=== PATIENT | female | born 1980 | race African-American/Black ===

== ENCOUNTER 2018-08-19 18:04 | Observation (INO) | payer MEDICAID, OTHER ==
[2018-08-19 18:44] LABS: #Basophils 0.1 thou/uL (0.0-0.2); #Eosinphils 0.1 thou/uL (0.0-0.7); #Monocytes 0.7 thou/uL (0.11-0.59); #Neutrophils 5.6 thou/uL (1.40-6.50); %Basophils 0.6 % (0.0-1.0); %Eosinophils 1.1 % (0.0-10.0); %Lymphocytes 32.1 % (21.0-51.0); %Monocytes 7.4 % (0.0-10.0); %Neutrophils 58.8 % (42.0-75.0); Hemoglobin 13.4 g/dL (12.0-16.0); Mean Corpuscular HGB CONC 32.9 g/dL (32.0-36.0); Mean Corpuscular Hemoglobin 32.1 pg (27.0-31.0); Mean Corpuscular Volume 97.5 fL (78.0-98.0); Mean Platelet Volume 7.4 fL (7.4-10.4); Platelet Count 332 thou/uL (130-400); RBC Distribution Width 11.7 % (11.5-14.5); Red Blood Cell (RBC) Count 4.16 mill/uL (4.20-5.40); White Blood Cell (WBC) Count 9.5 thou/uL (4.8-10.8)
[2018-08-19 19:06] LABS: ALT (SGPT) 18 U/L (8-55); AST (SGOT) 16 U/L (5-34); Albumin 3.4 g/dL (3.5-5.0); Alkaline Phosphatase 63 U/L (40-150); Anion Gap 12 mmol/L (10-20); BUN (Urea Nitrogen) 8 mg/dL (7.0-18.7); Bilirubin, Total 0.6 mg/dL (0.2-1.2); CK (CPK) 273 U/L (29-168); Calc. Creatinine Clearance 0 mL/min (70-130); Calcium 9.1 mg/dL (7.8-10.44); Carbon Dioxide 28 mmol/L (22-29); Chloride 103 mmol/L (98-107); Estimated GFR-MDRD 55; Globulin 3.9 g/dL (2.4-3.5); Glucose 267 mg/dL (70-105); Potassium 3.5 mmol/L (3.5-5.1); Protein, Total 7.3 g/dL (6.0-8.3); Sodium 139 mmol/L (136-145)
[2018-08-19 19:10] LABS: CKMB 1.3 ng/mL (0-6.6); Troponin I Less than 0.010 ng/mL (< 0.028)
[2018-08-19] MEDS ORDERED: Nitroglycerin 0.4 MG TAB (25 Tab Bottle) ONE (19:15)
[2018-08-19] MEDS ORDERED: Aspirin 81 mg Enteric Coated Tablet ONE (19:17)
[2018-08-19] MEDS ORDERED: Morphine 4 MG/ML VIAL ONE (19:25)
[2018-08-19] MEDS ORDERED: Nitroglycerin 2% Ointment 1 INCH/1 GM Packet ONE (19:25)
[2018-08-19] MEDS ORDERED: Ondansetron PF 4 MG/2 ML Vial ONE (19:29)
--- NOTE | 2018-08-19 19:48 | RAD ---
CHEST ONE VIEW: 08/19/18 INDICATION: Chest pain, shortness of breath. COMPARISON: None. IMPRESSION: The exam technique accentuates the cardiac silhouette and pulmonary vasculature. The lungs are clear. No pleural effusion or pneumothorax evident. No acute osseous abnormality is noted. POS: [facility]
--- NOTE | 2018-08-19 20:33 | PDOC.FPRHP ---
- History of Present Illness Chief Complaint: Chest pain History of Present Illness: This is a 38 yo female with a PMH of HTN, DM2, ANSELMO, asthma, morbid obesity who presents to the ED with a cc of chest pain. She states the pain started about 4 days ago. She states the pain is a sharp pain that worsens with movement. She reports it feels like someone is sitting on her chest when she exerts her self. The pain is a 4/10 at rest and a 9/10 with exertion. The pain radiates to her left arm. She also reports dizziness (vertigo) and weak legs. She had a Echo and a stress test done in the [facility] area in July but recently moved to the area and has not followed up. She reports that the dough molder hand called her with the stress results and states they had planned on performing coronary angiogram. - Allergies/Adverse Reactions Allergies Allergy/AdvReac Type Severity Reaction Status Date / Time sertraline Allergy Verified 08/19/18 21:22 - Home Medications Medication Instructions Recorded Confirmed Type Acetaminophen [Tylenol] 650 mg PO Q4H PRN 08/19/18 08/19/18 History Baclofen 10 mg PO BID PRN 08/19/18 08/19/18 History Cyanocobalamin (Vitamin B-12) 1,000 mcg PO DAILY 08/19/18 08/19/18 History [Vitamin B-12] Dicyclomine [Bentyl] 10 mg PO AC 08/19/18 08/19/18 History Ezetimibe [Zetia] 10 mg PO DAILY 08/19/18 08/19/18 History Gabapentin 1,000 mg PO DAILY 08/19/18 08/19/18 History Insulin Degludec [Tresiba 20 unit SQ DAILY 08/19/18 08/19/18 History Flextouch U-100] Insulin Glulisine [Apidra Solostar] 14 unit SC AC 08/19/18 08/19/18 History Magnesium 250 mg PO DAILY 08/19/18 08/19/18 History NIFEdipine [Nifedipine ER] 90 mg PO DAILY 08/19/18 08/19/18 History Omeprazole 40 mg PO DAILY 08/19/18 08/19/18 History - History PMHx: DM 2, HTN, ANSELMO, Asthma, morbid obesity PSHx: cholecystectomy, csection FHx:Mother had afib, grand mother of [place] at 72, brother has some heart disease Social: Smokes occasionally, drinks occasionally, denies drug use - Review of Systems General: denies: fever/chills, weight/appetite/sleep changes Eyes: denies: eye pain, vision changes ENT: denies: nasal congestion, rhinorrhea Respiratory: reports: cough, shortness of breath, exercise intolerance Cardiovascular: reports: chest pain, edema. denies: palpitation Gastrointestinal: denies: nausea, vomiting, diarrhea, constipation Genitourinary: denies: incontinence, dysuria Skin: denies: rashes, lesions Musculoskeletal: reports: tenderness (lower extremities) Neurological: reports: numbness (BLE) Psychological: denies: anxiety, depression - Vital signs BP: 155/104 HR: 101 RR: 14 Tmax: 98.1 Pox: 95% on RA Wt: 211 kg - Physical Exam Constitutional: NAD, awake, alert and oriented, other (Morbidly obese) HEENT: normocephalic and atraumatic, EOMI, MMM Neck: FROM, trachea midline Chest: other (Tender to palpation but not the same pain) Heart: RRR, normal S1/S2 Lungs: CTAB (restricted by body habitus), no respiratory distress Abdomen: soft, bowel sounds present, no masses/distention, other (mild tenderness to palpation diffusely) Musculoskeletal: ROM grossly normal Neurological: no focal deficit, CN II-XII intact Heme/Lymphatic: no unusual bruising or bleeding, no purpura Psychiatric: normal mood and affect, good judgment and insight, intact recent and remote memory FMR H&P: Results - Labs Result Diagrams: 08/20/18 00:36 08/20/18 00:36 Lab results: WBC 9.5 thou/uL (4.8-10.8) 08/19/18 18:33 Hgb 13.4 g/dL (12.0-16.0) 08/19/18 18:33 Hct 40.6 % (36.0-47.0) 08/19/18 18:33 MCV 97.5 fL (78.0-98.0) 08/19/18 18:33 Plt Count 332 thou/uL (130-400) 08/19/18 18:33 Neutrophils % 58.8 % (42.0-75.0) 08/19/18 18:33 Sodium 139 mmol/L (136-145) 08/19/18 18:33 Potassium 3.5 mmol/L (3.5-5.1) 08/19/18 18:33 Chloride 103 mmol/L (98-107) 08/19/18 18:33 Carbon Dioxide 28 mmol/L (22-29) 08/19/18 18:33 BUN 8 mg/dL (7.0-18.7) 08/19/18 18:33 Creatinine 1.11 mg/dL (0.6-1.1) H 08/19/18 18:33 Glucose 267 mg/dL (70-105) H 08/19/18 18:33 Calcium 9.1 mg/dL (7.8-10.44) 08/19/18 18:33 Total Bilirubin 0.6 mg/dL (0.2-1.2) 08/19/18 18:33 AST 16 U/L (5-34) 08/19/18 18:33 ALT 18 U/L (8-55) 08/19/18 18:33 Alkaline Phosphatase 63 U/L (40-150) 08/19/18 18:33 Creatine Kinase 273 U/L (29-168) H 08/19/18 18:33 CK-MB (CK-2) 1.3 ng/mL (0-6.6) 08/19/18 18:33 B-Natriuretic Peptide Less than 10.0 pg/mL (0-100) 08/19/18 18:33 Serum Total Protein 7.3 g/dL (6.0-8.3) 08/19/18 18:33 Albumin 3.4 g/dL (3.5-5.0) L 08/19/18 18:33 - EKG Interpretation EKG: Sinus tach, no st elevations or depressions - Radiology Interpretation Chest x-ray Status: image reviewed by me, report reviewed by me (No acute cardiopulmonary process) FMR H&P: A/P - Problem List (1) Chest pain Current Visit: Yes Status: Acute Code(s): R07.9 - CHEST PAIN, UNSPECIFIED (2) DM (diabetes mellitus) Current Visit: Yes Status: Acute Code(s): E11.9 - TYPE 2 DIABETES MELLITUS WITHOUT COMPLICATIONS (3) HTN (hypertension) Current Visit: Yes Status: Acute Code(s): I10 - ESSENTIAL (PRIMARY) HYPERTENSION (4) ANSELMO (obstructive sleep apnea) Current Visit: Yes Status: Acute Code(s): G47.33 - OBSTRUCTIVE SLEEP APNEA ( ADULT) (PEDIATRIC) (5) Asthma Current Visit: Yes Status: Acute Code(s): J45.909 - UNSPECIFIED ASTHMA, UNCOMPLICATED (6) Morbid obesity with BMI of 70 and over, adult Current Visit: Yes Status: Acute Code(s): E66.01 - MORBID (SEVERE) OBESITY DUE TO EXCESS CALORIES; Z68.45 - BODY MASS INDEX (BMI) 70 OR GREATER, ADULT - Plan This is a 38 yo female with a PMH of HTN, DM2, ANSELMO, asthma, morbid obesity Typical Chest pain likely 2/2 unstable angina -Admit to tele obs. Pt. is receiving nitro and morphine for symptom control. Troponins are negative x3. We will contact providers in [facility] area for release of records in the morning. Dr. Michael Jones, dough molder hand (Echo results), [facility] (stress test results). We will direct our management based on these findings. PCP Dr. Leila Kruse in [facility] area HTN -continue nifedipine DM 2 -Lantus, Aggressive SSI, ACHS accuchecks, A1C 11.0 ANSELMO -Aware Asthma -Duoneb PRN Morbid obesity -Aware Code: full Prophylaxis: SCDs Family: Friend at bedside Disposition: home in 1-2 days FMR H&P: Upper Level - Pertinent history 38 yo female here for chest pain. Hx of DMII, HTN, morbid obesity, asthma. Reports she has been having sharp pain at rest for the past few days which turns into pressure type pain when moving. 5/10 at rest, 9/10 with movement. She has recent history of having stress test and ECHO in the [facility] about 2 months ago. She apparently was suppose to have angiography done, but this is still pending. - Pertinent findings 155/116 HR: 93 Temp: 98.1 94% on RA Trop: <0.010 GEN: NAD, morbidly obese which limits exam CARD: RRR, no m/g/r PULM: CTA ABD: diffusely TTP EXT: no cyanosis or edema EKG: sinus tach at 112, Twave inversion - Plan Date/Time: 08/19/182028 I, Blas Vargas DO, have evaluated this patient and agree with findings/plan as outlined by internal control analyst resident. Pertinent changes/additions are listed here. atypical Chest pain, r/o ACS -due to her history of recent evaluation, we will hold off on getting stress test and will get records from [facility] cardiology tomorrow to determine workup. Then based on results of that search, consider cardiology consult to determine if we should do further workup here or in outpatient setting. Continue to trend CE. HTN: -continue home meds DMII -continue home meds
[2018-08-19 21:42] VITALS: BMI 89.0
[2018-08-19] MEDS ORDERED: Acetaminophen 325 MG TAB PO PRN (22:04)
[2018-08-19] MEDS ORDERED: Dextrose 50% Abboject 50 ML SYRINGE SLOW IVP PRN (22:09)
[2018-08-19] MEDS ORDERED: Dextrose 5% in Water 1,000 ML IV PRN (22:09)
[2018-08-19] MEDS ORDERED: HumaLOG 300 UNITS/3 ML VIAL SC PRN ×2 (22:09→23:26)
[2018-08-19 22:31] LABS: Troponin I Less than 0.010 ng/mL (< 0.028)
[2018-08-19] MEDS ORDERED: Insulin Glargine 20 UNITS in Pre-Filled Syringe 1 EACH SC SCH (23:30)
[2018-08-19] MEDS: Morphine 4 MG/ML VIAL SLOW IVP PRN (23:47)
[2018-08-20 00:55] LABS: #Eosinphils 0.2 thou/uL (0.0-0.7); #Lymphocytes 2.5 thou/uL (1.20-3.40); #Monocytes 0.8 thou/uL (0.11-0.59); #Neutrophils 5.1 thou/uL (1.40-6.50); %Basophils 0.2 % (0.0-1.0); %Eosinophils 1.9 % (0.0-10.0); %Lymphocytes 29.1 % (21.0-51.0); %Monocytes 8.9 % (0.0-10.0); %Neutrophils 59.9 % (42.0-75.0); Hemoglobin 12.2 g/dL (12.0-16.0); Mean Corpuscular HGB CONC 32.1 g/dL (32.0-36.0); Mean Corpuscular Hemoglobin 31.4 pg (27.0-31.0); Mean Platelet Volume 7.3 fL (7.4-10.4); Platelet Count 299 thou/uL (130-400); RBC Distribution Width 11.8 % (11.5-14.5); Red Blood Cell (RBC) Count 3.87 mill/uL (4.20-5.40); White Blood Cell (WBC) Count 8.6 thou/uL (4.8-10.8)
[2018-08-20 01:18] LABS: ALT (SGPT) 17 U/L (8-55); AST (SGOT) 16 U/L (5-34); Alkaline Phosphatase 56 U/L (40-150); Anion Gap 12 mmol/L (10-20); BUN (Urea Nitrogen) 10 mg/dL (7.0-18.7); Bilirubin, Total 0.7 mg/dL (0.2-1.2); Calc. Creatinine Clearance 234 mL/min (70-130); Calcium 8.5 mg/dL (7.8-10.44); Carbon Dioxide 28 mmol/L (22-29); Chloride 102 mmol/L (98-107); Estimated GFR-MDRD 67; Globulin 3.6 g/dL (2.4-3.5); Glucose 270 mg/dL (70-105); Potassium 3.5 mmol/L (3.5-5.1); Protein, Total 6.6 g/dL (6.0-8.3); Sodium 138 mmol/L (136-145)
[2018-08-20 01:22] LABS: Troponin I Less than 0.010 ng/mL (< 0.028)
[2018-08-20] MEDS: HumaLOG 300 UNITS/3 ML VIAL SC SCH ×3 (07:33→16:49)
[2018-08-20] MEDS: Morphine 4 MG/ML VIAL SLOW IVP PRN ×3 (07:34→23:27)
[2018-08-20] MEDS ORDERED: Albuterol Sulfate 1.25 MG/3 ML NEB NEB PRN (08:18)
--- NOTE | 2018-08-20 08:23 | PDOC.FM ---
- Subjective Subjective: Ms. Sullivan is resting comfortably in bed, she is complaining of SOB and cough which reproduces her chest pain. She says this pain is similar to the chest pain that brought her in. - Objective Vital Signs & Weight: Vital Signs (12 hours) Temp Pulse Resp BP Pulse Ox 08/20/18 07:54 97.3 F L 103 H 20 135/68 94 L 08/20/18 05:38 98 F 104 H 18 128/67 96 08/19/18 23:00 98.4 F 101 H 22 H 135/73 94 L 08/19/18 21:11 98.5 F 107 H 20 128/72 90 L Weight Weight 216.091 kg I&O: 08/19/18 08/20/18 08/21/18 06:59 06:59 06:59 Intake Total 2221 1 Output Total 0 400 Balance 2221 -399 Result Diagrams: 08/20/18 00:36 08/20/18 00:36 <Ricky Mcnamara - Last Filed: 08/20/18 08:20> - Objective Vital Signs & Weight: Vital Signs (12 hours) Temp Pulse Resp BP Pulse Ox 08/20/18 11:48 99.2 F 99 20 134/77 95 08/20/18 11:18 100 14 08/20/18 07:54 97.3 F L 103 H 20 135/68 94 L 08/20/18 05:38 98 F 104 H 18 128/67 96 Weight Weight 216.091 kg I&O: 08/19/18 08/20/18 08/21/18 06:59 06:59 06:59 Intake Total 2221 301 Output Total 0 400 Balance 2221 -99 Result Diagrams: 08/20/18 00:36 08/20/18 00:36 <Krishna Simpson - Last Filed: 08/20/18 14:00> Phys Exam - Physical Examination Constitutional: NAD HEENT: moist MMs Respiratory: wheezing present Cardiovascular: RRR, no significant murmur difficulty auscultation 2/2 body habitus Gastrointestinal: soft pain with palpation over sternum Neurological: moves all 4 limbs Psychiatric: normal affect <Ricky Mcnamara - Last Filed: 08/20/18 08:20> Dx/Plan (1) Atypical chest pain Code(s): R07.89 - OTHER CHEST PAIN Status: Acute (2) Asthma Code(s): J45.909 - UNSPECIFIED ASTHMA, UNCOMPLICATED Status: Acute (3) DM (diabetes mellitus) Code(s): E11.9 - TYPE 2 DIABETES MELLITUS WITHOUT COMPLICATIONS Status: Acute (4) HTN (hypertension) Code(s): I10 - ESSENTIAL (PRIMARY) HYPERTENSION Status: Acute (5) Morbid obesity with BMI of 70 and over, adult Code(s): E66.01 - MORBID (SEVERE) OBESITY DUE TO EXCESS CALORIES; Z68.45 - BODY MASS INDEX (BMI) 70 OR GREATER, ADULT Status: Acute - Plan Plan: Atypical chest pain - Troponins are negative x3, pain reproducible with palpation and cough - Records requested from Dr. Michael Jones, automobile washer steam (Echo results), [facility] (stress test results). We will direct our management based on these findings. PCP Dr. Leila Kruse in [facility] area - compare EKG with previous from outside automobile washer steam - likely 2/2 asthma exacerbation, q4hr nebs - possible DC with negative tests from outside cardiology office HTN -continue nifedipine DM 2 -Lantus, Aggressive SSI, ACHS accuchecks, A1C 11.0 ANSELMO -Aware Asthma -albuterol q4hr, Duoneb PRN Morbid obesity -Aware Code: full Prophylaxis: SCDs Disposition: possible DC later today <Ricky Mcnamara - Last Filed: 08/20/18 08:20> Attending Addendum - Attending Addendum Date/Time: 08/20/18 7219 I personally evaluated the patient and discussed the management with Dr. Mcnamara. I agree with and repeated the History, Examination, Assessment and Plan documented above with any addition or exceptions noted below. Pt with no CP this AM. Reviewing records, had a stress/cath sometime previous to 06/2018, but then had stress 07/2018 that demonstrated quite extensive ischemia and seemed to correlate to her TWI laterally and inferiorly. HD statin , ASA, d/w cards. For her asthma she is also quite wheezy. Schedule nebs, steroids, and monitor sugars closely. <Krishna Simpson - Last Filed: 08/20/18 14:00>
[2018-08-20] MEDS: Aspirin 325 MG TAB PO SCH (09:37)
[2018-08-20] MEDS: Albuterol Sulfate 1.25 MG/3 ML NEB NEB SCH ×4 (11:18→22:15)
[2018-08-20] MEDS: Labetalol HCl 100 MG/20 ML VIAL SLOW IVP PRN (16:31)
--- NOTE | 2018-08-20 17:04 | EKG ---
Test Reason : Blood Pressure : / mmHG Vent. Rate : 098 BPM Atrial Rate : 098 BPM P-R Int : 150 ms QRS Dur : 078 ms QT Int : 358 ms P-R-T Axes : 034 028 -75 degrees QTc Int : 457 ms Normal sinus rhythm Cannot rule out Inferior infarct , age undetermined Nonspecific ST-T changes Abnormal ECG When compared with ECG of 19-AUG-2018 18:12, (Unconfirmed) Minimal criteria for Inferior infarct are now Present Inverted T waves have replaced nonspecific T wave abnormality in Inferior leads Confirmed by DR. Brenda ESCAMILLA (3) on 08/20/2018 5:03:48 PM Referred By: Confirmed By:DR. Brenda ESCAMILLA
--- NOTE | 2018-08-20 17:06 | EKG ---
Test Reason : C/O CHEST PAIN Blood Pressure : / mmHG Vent. Rate : 105 BPM Atrial Rate : 105 BPM P-R Int : 136 ms QRS Dur : 078 ms QT Int : 370 ms P-R-T Axes : 048 056 -40 degrees QTc Int : 489 ms Sinus tachycardia T wave abnormality, consider inferior ischemia Abnormal ECG When compared with ECG of 19-AUG-2018 18:12, (Unconfirmed) T wave inversion now evident in Inferior leads T wave inversion no longer evident in Lateral leads Confirmed by DR. Brenda ESCAMILLA (3) on 08/20/2018 5:06:14 PM Referred By: Jose Rafael RIVAS Confirmed By:DR. Brenda ESCAMILLA
--- NOTE | 2018-08-20 19:48 | CON ---
DATE OF CONSULTATION: 08/20/2018 CARDIOLOGY CONSULTATION REASON FOR CONSULTATION: Chest pain. HISTORY OF PRESENT ILLNESS: Mrs. Sullivan is a very pleasant 38-year-old female who comes to the hospital for chest pain. She comes in for pain that has been going on for about 4 days , it is in the middle left side of the chest, worse with moving her arms and trying to move around. Sometimes, it feels like somebody is sitting on her chest when she exerts herself. She moved recentl y from the [facility] and she has been having these same symptoms over there. She had a workup incl uding a nuclear stress test, which we have a copy off and it was abnormal with a normal EF, but has h ad an anterior defect and an inferior defect both suggestive of ischemia in both distributions. She was told that she needed a coronary angiogram, but this never was performed as apparently there was a problem with her insurance. She moved to this area recently and is here because she had pain again for the last 4 days. She has been ruled out with negative enzymes and EKG, which is unremarkable. C ardiology is being consulted for further care. Currently, on my evaluation, she is chest pain free. She has had a heart catheterization apparently about 8 or 10 years ago for similar symptoms and she was told that everything looked just fine. PAST MEDICAL HISTORY: 1. Type 2 diabetes. 2. Hypertension. 3. Sleep apnea. 4. Bronchial asthma. 5. Morbid obesity. PAST SURGICAL HISTORY: 1. Cholecystectomy. 2. . FAMILY HISTORY: Mother of an MS at age 72. Mother had a history of arrhythmias and atrial fibr illation. SOCIAL HISTORY: Social smoke and alcohol use. No drug use. REVIEW OF SYSTEMS: A 12-point review of systems was done and it is all negative unless stated in the history of present illness OUTPATIENT MEDICATIONS: Include, 1. Tylenol p.r.n. 2. Baclofen. 3. Vitamin B12. 4. Dicyclomine. 5. Zetia 10 mg a day. 6. Gabapentin. 7. Tresiba insulin. 8. Apidra insulin. 9. Magnesium. 10. Nifedipine 90 mg a day. 11. Omeprazole 40 mg a day. ALLERGIES: SERTRALINE. PHYSICAL EXAMINATION: VITAL SIGNS: Temperature 98.4, pulse between 98-104, respiratory rate 21, satting 93% on room air, b lood pressure has been anywhere from 132/74 up to 246/139. GENERAL: Awake, alert, oriented x3, in no distress, morbidly obese. Her weight is 476 pounds. She is 5 feet 1 inch tall. HEENT: Normocephalic, atraumatic. NECK: Short. LUNGS: Clear to auscultation. Distant lung sounds. CARDIOVASCULAR: Distant heart sounds. S1, S2. No S3 or S4. ABDOMEN: Soft, prominent. EXTREMITIES: 2+ edema, seems chronic. SKIN: Warm and dry. LABORATORY WORK: Reviewed. CBC was unremarkable. Chemistry is unremarkable except for a glucose of 270. Troponin is negative, completely undetectable x3. BNP was less than assay limit. Albumin of 3.0. IMAGING: EKG showed low voltage QRS, but no ischemic changes. Chest x-ray, accentuated pulmonary vasculature, thought to be from exam technique, but clear lungs. ASSESSMENT: 1. Chest pain. 2. Morbid obesity, BMI of 90. 3. Type 2 diabetes. 4. Hypertension. PLAN: 1. She has had an abnormal stress test at an outside facility. We have copies of this. However, dominga bland is currently outside the weight limits of our catheterization table and a catheterization would be prohibitive. She will have to lose about 50 pounds before we can proceed. This may be a challenge f or her. Given the severity of her obesity, we will plan on doing medical therapy, assuming that jerri bland may be some level of coronary artery disease. We will try to control her blood pressure better wit h addition of a beta nathanael. Continue calcium channel nathanael. Both of these will act as antiangin als hopefully. 2. Weight loss recommended. 3. Continue strict glucose control. 4. Echocardiogram will be done. Thank you for letting us participate in the care of your patient. She should be able to be discharge d home in the next 24-48 hours once blood pressure is better controlled and echocardiogram has been d one.
[2018-08-20] MEDS ORDERED: Insulin Glargine 20 UNITS in Pre-Filled Syringe 1 EACH SC SCH (21:00)
[2018-08-21] MEDS: Albuterol Sulfate 1.25 MG/3 ML NEB NEB SCH ×4 (02:10→14:03)
--- NOTE | 2018-08-21 06:18 | PDOC.FM ---
- Subjective Subjective: Ms. Sullivan is not feeling well today, she reports her chest pain/cough/SOB has improved but now she is reporting body aches and a cough. - Objective Vital Signs & Weight: Vital Signs (12 hours) Temp Pulse Resp BP Pulse Ox 08/21/18 04:24 98.9 F 102 H 18 134/78 94 L 08/21/18 02:10 110 H 12 89 L 08/20/18 23:27 94 L 08/20/18 23:14 98.2 F 97 18 176/94 H 92 L 08/20/18 22:15 113 H 16 90 L 08/20/18 19:07 98.7 F 102 H 15 175/87 H 90 L 08/20/18 18:21 103 H 12 93 L Weight Weight 216.091 kg I&O: 08/19/18 08/20/18 08/21/18 06:59 06:59 06:59 Intake Total 2221 604 Output Total 0 1400 Balance 2221 796 Result Diagrams: 08/20/18 00:36 08/20/18 00:36 <Ricky Mcnamara - Last Filed: 08/21/18 08:41> - Objective Vital Signs & Weight: Vital Signs (12 hours) Temp Pulse Resp BP BP Pulse Ox 08/21/18 14:03 99 16 08/21/18 11:53 98.7 F 105 H 24 H 134/59 L 90 L 08/21/18 11:15 92 16 08/21/18 08:37 97 199/81 H 08/21/18 08:02 95 08/21/18 08:01 102 H 16 199/81 H 08/21/18 07:22 99.1 F 107 H 22 H 199/81 H 96 08/21/18 04:24 98.9 F 102 H 18 134/78 94 L Weight Weight 216.091 kg I&O: 08/20/18 08/21/18 08/22/18 06:59 06:59 06:59 Intake Total 2221 1564 603 Output Total 0 2700 Balance 2221 1139 603 Result Diagrams: 08/20/18 00:36 08/20/18 00:36 <Krishna Simpson - Last Filed: 08/21/18 15:05> Phys Exam - Physical Examination Constitutional: NAD Respiratory: no wheezing, no rales, no rhonchi, clear to auscultation bilateral Cardiovascular: RRR, no significant murmur, no rub Neurological: moves all 4 limbs Psychiatric: normal affect Skin: no rash <Ricky Mcnamara - Last Filed: 08/21/18 08:41> Dx/Plan (1) Atypical chest pain Code(s): R07.89 - OTHER CHEST PAIN Status: Acute (2) Asthma Code(s): J45.909 - UNSPECIFIED ASTHMA, UNCOMPLICATED Status: Acute (3) DM (diabetes mellitus) Code(s): E11.9 - TYPE 2 DIABETES MELLITUS WITHOUT COMPLICATIONS Status: Acute (4) HTN (hypertension) Code(s): I10 - ESSENTIAL (PRIMARY) HYPERTENSION Status: Acute (5) Morbid obesity with BMI of 70 and over, adult Code(s): E66.01 - MORBID (SEVERE) OBESITY DUE TO EXCESS CALORIES; Z68.45 - BODY MASS INDEX (BMI) 70 OR GREATER, ADULT Status: Acute - Plan Plan: Typical chest pain - Troponins are negative x3, pain currently reproducible with palpation and cough - Records requested from Dr. Michael Jones, brush finisher (Echo results), [facility] (stress test results). We will direct our management based on these findings. PCP Dr. Leila Kruse in [facility] area - echocardiogram preformed, no change from previous one a month ago - Lexiscan obtained from other facility. Abnormal, most likely 2/2 body habitus - Cardiology consulted, recommend medical management, weight loss - continue nifedipine, begin coreg URI - most likely, swab for flu - symptomatic treatment HTN -continue nifedipine DM 2 -Lantus, Aggressive SSI, ACHS accuchecks, A1C 11.0 ANSELMO -Aware Asthma - possible exacerbation/URI clouding/contributing to chest pain picture - albuterol q4hr, Duoneb PRN Morbid obesity -Aware, unable to cath Code: full Prophylaxis: SCDs Disposition: possible DC later today, with good patient tolerance of new medications and BP control <Ricky Mcnamara - Last Filed: 08/21/18 08:41> Attending Addendum - Attending Addendum Date/Time: 08/21/18 6299 I personally evaluated the patient and discussed the management with team. I agree with and repeated the History, Examination, Assessment and Plan documented above with any addition or exceptions noted below. Risk factor management. She is CP free today. Adjust meds to inc BP control and then may be d/c'd with follow up. <Krishna Simpson - Last Filed: 08/21/18 15:05>
[2018-08-21] MEDS: Labetalol HCl 100 MG/20 ML VIAL SLOW IVP PRN (08:01)
[2018-08-21] MEDS: HumaLOG 300 UNITS/3 ML VIAL SC SCH ×3 (08:10→16:46)
[2018-08-21] MEDS: Aspirin 325 MG TAB PO SCH (08:37)
[2018-08-21] MEDS ORDERED: Carvedilol 3.125 MG TAB PO SCH ×2 (09:00→17:00)
[2018-08-21] MEDS ORDERED: NIFEdipine XL 90 MG TAB PO SCH (09:00)
[2018-08-21] MEDS ORDERED: Baclofen 10 MG TAB PO PRN (09:07)
[2018-08-21] MEDS ORDERED: Acetaminophen 325 MG TAB PO PRN (09:35)
[2018-08-21] MEDS ORDERED: Cyanocobalamin (Vitamin B-12) 1,000 MCG TAB PO SCH (09:45)
[2018-08-21] MEDS ORDERED: Magnesium Oxide 250 MG TAB PO SCH (09:45)
[2018-08-21] MEDS ORDERED: Gabapentin 400 MG CAP PO SCH (09:45)
[2018-08-21] MEDS ORDERED: Ezetimibe 10 MG TAB PO SCH (09:45)
[2018-08-21] MEDS ORDERED: Gabapentin 300 MG CAP PO SCH (09:45)
[2018-08-21] MEDS: Dicyclomine 10 MG CAP PO SCH ×2 (09:58→16:46)
[2018-08-21 11:54] VITALS: BP 134/59; TEMP 98.7
[2018-08-21] MEDS: Morphine 4 MG/ML VIAL SLOW IVP PRN (12:02)
[2018-08-21] MEDS ORDERED: PROVENTIL INHALER 6.7 G (200 INHALATIONS) INH PRN (14:50)
--- NOTE | 2018-08-21 17:00 | PDOC.CTH ---
Cardiology Progress Note - Subjective Doing well. No more chest pain. - Objective Vital Signs Temp Pulse Resp BP BP Pulse Ox 08/21/18 15:09 24 H 96 08/21/18 14:03 99 16 08/21/18 11:53 98.7 F 105 H 24 H 134/59 L 90 L 08/21/18 11:15 92 16 08/21/18 08:37 97 199/81 H 08/21/18 08:02 95 08/21/18 08:01 102 H 16 199/81 H 08/21/18 07:22 99.1 F 107 H 22 H 199/81 H 96 Weight 476 lb 6.4 oz 08/20/18 08/21/18 08/22/18 06:59 06:59 06:59 Intake Total 2221 1564 603 Output Total 0 2700 Balance 2221 -1136 603 - Physical Examination General/Neuro: alert & oriented x3, NAD Neck: no JVD present Lungs: CTA, unlabored respirations Heart: RRR Abdomen: NT/ND Extremities: + edema B (1+) - Telemetry Telemetry Rhythm: NSR - Labs Result Diagrams: 08/20/18 00:36 08/20/18 00:36 Troponin/CKMB CK-MB (CK-2) 1.3 ng/mL (0-6.6) 08/19/18 18:33 Troponin I Less than 0.010 ng/mL (< 0.028) 08/20/18 00:36 - Assessment/Plan 1. Chest pain 2. Abnormal stress test 3. Morbid obesity BMI 90 4. Type 2 DM 5. HTN PLAN: - Medical therapy. - Echo with normal LVEF and normal diastolic function. - Currently on BB and CCB as antianginals and for BP control. May need nitrates if pain continues. - Needs to loose weight before a [facility]. . - May discharge home any time from cardiac perspective. - Follow up in 1 month.
--- NOTE | 2018-08-22 00:02 | DIS-2 ---
ADMITTING ATTENDING: Dr. Chris Tobias. DISCHARGE ATTENDING: Krishna Simpson MD RESIDENT: Ricky Mcnamara DO CONSULTATIONS: Ever Jones MD PROCEDURES: Electrocardiogram read sinus tachycardia, T-wave abnormality. Echocardiogram report significant for ejection fraction is visually estimated at 60%-65%, normal diastolic dysfunction, mildly dilated left atrium, mild mitral regurgitation, mild tricuspid regurgitation. DISCHARGE MEDICATIONS: 1. Omeprazole 40 mg p.o. daily. 2. Zetia 10 mg p.o. daily. 3. Nifedipine 90 mg p.o. daily. 4. Magnesium 250 mg p.o. daily. 5. Bentyl 10 mg p.o. a.c. 6. Gabapentin 1000 mg p.o. daily. 7. Vitamin B12 1000 mcg p.o. daily. 8. Baclofen 10 mg p.o. b.i.d. p.r.n. 9. Insulin (Apidra SoloSTAR) 14 units subcu a.c. 10. Tresiba Flextouch U-100 20 units subcu daily. 11. Tylenol 325 p.o. q.4 hours p.r.n. 12. Coreg 3.125 p.o. b.i.d. with meals. 13. Proventil HFA 2 puff inhaled q.4 hours p.r.n. as needed for cough/wheezing. PRIMARY DIAGNOSIS: Typical chest pain. SECONDARY DIAGNOSES: 1. Upper respiratory infection. 2. Hypertension. 3. Diabetes mellitus type 2. 4. Obstructive sleep apnea. 5. Asthma. 6. Morbid obesity. HISTORY OF PRESENT ILLNESS AND HOSPITAL COURSE: This 38-year-old female with past medical history of hypertension, diabetes mellitus type 2, obstructive sleep apnea, asthma, and morbid obesity, who presents to ED with a chief complaint of chest pain. She says the pain started about 4 days ago. The pain is sharp and worsens with movement. She reports that feels like someone is sitting on her chest when she exerts herself, it is 4/10 at rest and 9/10 with exertion. The pain radiates into her left arm. She also reports dizziness. She reports that she had an echo and stress test done in July, recently moved here and does not have the records with her. Troponins in the ED were negative. Records were obtained from an outside portal developer and revealed a Lexiscan that showed diffuse hypoperfusion of the myocardium. An echocardiogram that was significant for left ventricular ejection fraction above 60%. At this point, Cardiology was consulted. After reviewing records, recommended that an echocardiogram be performed here. This was done and similar to the one that she had had in the past and Cardiology advised catheterization was not possible at this time secondary to patient's body habitus and recommended medical management of symptoms and follow up outpatient. The patient was discharged in stable condition. DISCHARGE INSTRUCTIONS: 1. Location: Home. 2. Activity: As tolerated. 3. Diet: Diabetic/heart healthy. FOLLOWUP: 1. Follow up with [facility] if desired in [address] Jones in 1 month. MAYRA
[2018-08-22] MEDS ORDERED: Cyanocobalamin (Vitamin B-12) 1,000 MCG TAB PO SCH (09:00)
[2018-08-22] MEDS ORDERED: Ezetimibe 10 MG TAB PO SCH (09:00)
[2018-08-22] MEDS ORDERED: Gabapentin 300 MG CAP PO SCH (09:00)
[2018-08-22] MEDS ORDERED: Magnesium Oxide 250 MG TAB PO SCH (09:00)
[2018-08-22] MEDS ORDERED: Gabapentin 400 MG CAP PO SCH (09:00)
== END 2018-08-21 18:21 | disposition home or self-care (01) ==
LOC: ERS 18:04 → 2SW 19:30
PROVIDERS: ADMIT Family Medicine; ATTEND Family Medicine
DX: R07.89 Other chest pain (principal); E11.9 Type 2 diabetes mellitus without complications; J06.9 Acute upper respiratory infection, unspecified; G47.33 Obstructive sleep apnea (adult) (pediatric); J45.909 Unspecified asthma, uncomplicated; I10 Essential (primary) hypertension; F17.200 Nicotine dependence, unspecified, uncomplicated; E66.01 Morbid (severe) obesity due to excess calories; Z68.45 Body mass index [BMI] 70 or greater, adult; Z88.8 Allergy status to other drugs, medicaments and biological substances; Z79.4 Long term (current) use of insulin; Z79.899 Other long term (current) drug therapy
CPT/HCPCS: 36415; 36416; 71045; 80053; 82550; 82553; 83036; 83880; 84484; 85025; 87804; 93005; 93010; 93306; 94640; 94760; 96374; 96375; 96376; G0378; J2270; J2405

== ENCOUNTER 2019-05-04 15:32 | Emergency (ER) | payer MEDICAID ==
[~2019-05-04 15:32] MED LIST: ISOVUE-370 76%-LOCM 1 ML ONE
[2019-05-04 16:29] LABS: #Eosinphils 0.2 thou/uL (0.0-0.7); #Lymphocytes 3.8 thou/uL (1.20-3.40); #Monocytes 0.4 thou/uL (0.11-0.59); #Neutrophils 4.8 thou/uL (1.40-6.50); %Basophils 0.3 % (0.0-1.0); %Eosinophils 1.8 % (0.0-10.0); %Lymphocytes 41.8 % (21.0-51.0); %Monocytes 4.5 % (0.0-10.0); %Neutrophils 51.7 % (42.0-75.0); Hemoglobin 12.9 g/dL (12.0-16.0); Mean Corpuscular HGB CONC 32.7 g/dL (32.0-36.0); Mean Corpuscular Hemoglobin 32.1 pg (27.0-31.0); Mean Corpuscular Volume 98.3 fL (78.0-98.0); Mean Platelet Volume 7.6 fL (7.4-10.4); Platelet Count 306 thou/uL (130-400); RBC Distribution Width 11.2 % (11.5-14.5); White Blood Cell (WBC) Count 9.2 thou/uL (4.8-10.8)
[2019-05-04 16:49] LABS: ALT (SGPT) 13 U/L (8-55); AST (SGOT) 14 U/L (5-34); Albumin 3.3 g/dL (3.5-5.0); Alkaline Phosphatase 64 U/L (40-150); Anion Gap 13 mmol/L (10-20); BUN (Urea Nitrogen) 12 mg/dL (7.0-18.7); Bilirubin, Total 0.3 mg/dL (0.2-1.2); Calc. Creatinine Clearance 0 mL/min (70-130); Carbon Dioxide 27 mmol/L (22-29); Chloride 102 mmol/L (98-107); Estimated GFR-MDRD 68; Globulin 3.4 g/dL (2.4-3.5); Glucose 347 mg/dL (70-105); Lipase 30 U/L (8-78); Potassium 3.9 mmol/L (3.5-5.1); Protein, Total 6.7 g/dL (6.0-8.3); Sodium 138 mmol/L (136-145)
[2019-05-04] MEDS ORDERED: Pantoprazole 40 MG VIAL ONE (18:35)
[2019-05-04] MEDS ORDERED: Metoclopramide HCl 10 MG/2 ML VIAL ONE (18:35)
[2019-05-04 18:40] LABS: Bacteria/HPF 4+ HPF (None Seen); Bilirubin Negative (Negative); Blood, Urine Trace (Negative); Clarity Turbid (Clear); Glucose, Urine (Dipstick) Greater than 1000 mg/dL (Negative); Leukocyte 500 Leu/uL (Negative); Nitrite 2+ (Negative); Protein, Urine (Dipstick) 100 mg/dL (Neg-Trace); Urobilinogen Normal mg/dL (Less than 2); WBC/HPF Greater than 50 HPF (0-3)
[2019-05-04 18:41] LABS: Pregnancy Test - Urine (BHCG) Negative (Negative); Pregu Control Background? CLEAR/WHITE (CLR/WHITE); Pregu Control Bar Appear? YES (CONTROL BAR); Specific Gravity 1.021 (1.002-1.036)
--- NOTE | 2019-05-04 19:47 | CT ---
CT ABDOMEN AND PELVIS WITH CONTRAST: 05/04/19 INDICATIONS: Abdominal pain. No comparison. The exam is limited due to soft tissue attenuation. Lungs are basically clear. Liver, spleen, and pancreas appear unremarkable. Post cholecystectomy changes are noted. Adrenal glands and kidneys are unremarkable. Small bowel loops normal caliber. Appendix is difficult to delineate due to the soft tissue artifact; however, no evidence of inflammatory process identified. The colon is unremarkable. No adenopathy. Aorta normal caliber. Urinary bladder appears unremarkable. The pelvic structures are not well delineated but appear unrema rkable. There is no soft tissue mass or fluid in the pelvis. Osseous structures are unremarkable. IMPRESSION: No acute process identified. POS: [facility]
== END 2019-05-04 20:55 | disposition home or self-care (01) ==
LOC: ERS 15:32
DX: N39.0 Urinary tract infection, site not specified (principal); K21.9 Gastro-esophageal reflux disease without esophagitis; E78.5 Hyperlipidemia, unspecified; J45.909 Unspecified asthma, uncomplicated; I10 Essential (primary) hypertension; F17.210 Nicotine dependence, cigarettes, uncomplicated; E11.9 Type 2 diabetes mellitus without complications; Z79.82 Long term (current) use of aspirin
CPT/HCPCS: 36415; 74177; 80053; 81003; 81015; 81025; 83690; 84484; 85025; 87077; 87086; 87186; 93005; 96365; 96372; 96375; C9113; J0500; J2765; Q9966

== ENCOUNTER 2020-04-26 12:01 | Outpatient (CLI) | payer OTHER ==
--- NOTE | 2020-04-26 13:14 | ULT ---
Exam: Bilateral renal ultrasound complete: HISTORY: Chronic kidney disease COMPARISON: None FINDINGS: Right kidney: 12.5 x 6.3 x 5.1 cm Left kidney: 12.0 x 6.2 x 6.2 cm No evidence for abnormal perinephric process. No solid or cystic renal mass. Unremarkable appearing bladder. IMPRESSION: Unremarkable bilateral renal ultrasound. No hydronephrosis or perinephric process.
== END 2020-04-26 12:02 | disposition home or self-care (01) ==
LOC: BICULT 12:01
PROVIDERS: ATTEND Internal Medicine Nephrology
DX: N18.2 Chronic kidney disease, stage 2 (mild) (principal)
CPT/HCPCS: 76770

== ENCOUNTER 2020-07-19 12:46 | Outpatient (CLI) | payer OTHER ==
--- NOTE | 2020-07-19 16:23 | RAD ---
RIGHT TIBIA AND FIBULA TWO VIEW: 07/19/20 HISTORY: Pain. COMPARISON: None. FINDINGS: In the distal tibial diaphysis is an intramedullary mass measuring 2.8 cm in length with poorly defin ed zone of transitional internal fluffy areas of high density. There is endosteal scalloping up to tw o-thirds of the lateral tibial cortex. No definite soft tissue component is appreciated. IMPRESSION: 1. No acute fracture. 2. Intramedullary mass distal tibial metadiaphysis with internal calcific matrix and endosteal s calloping with poorly defined zone of transition. This is concerning for underlying malignant degener ation of a chondroid lesion given the pain. Orthopedic consultation advised. Ishan Colunga notified of the findings via [employer] at 2:39 p.m. POS: [facility]
== END 2020-07-19 12:47 | disposition home or self-care (01) ==
LOC: BICRAD 12:46
PROVIDERS: ATTEND Family Medicine
DX: M79.604 Pain in right leg (principal); R22.41 Localized swelling, mass and lump, right lower limb

== ENCOUNTER 2020-12-08 12:34 | Outpatient (CLI) | payer OTHER ==
--- NOTE | 2020-12-08 13:54 | MMO ---
Bilateral MAMMO Bilat Screen [facility]. CLINICAL HISTORY: Patient is 40 years old and is seen for screening. The patient has the following family history of breast cancer: paternal aunt, malignant (generic). The patient has no personal history of cancer. VIEWS: The views performed were: bilateral craniocaudal and bilateral mediolateral oblique. This study has been interpreted with the assistance of computer-aided detection. MAMMOGRAM FINDINGS: The breasts are almost entirely fat. There are multiple intramammary lymph nodes seen in both breasts. There are no suspicious masses, suspicious calcifications, or new areas of architectural distortion. IMPRESSION: THERE IS NO MAMMOGRAPHIC EVIDENCE OF MALIGNANCY. A ROUTINE FOLLOW-UP MAMMOGRAM IN 1 YEAR IS RECOMMENDED. ACR BI-RADS Category 2 - Benign finding MAMMOGRAPHY NOTE: 1. A negative mammogram report should not delay a biopsy if a dominant of clinically suspicious mass is present. 2. Approximately 10% to 15% of breast cancers are not detected by mammography. 3. Adenosis and dense breasts may obscure an underlying neoplasm. Reported by: NABEEL BENÍTEZ MD Electonically Signed: [id number]
== END 2020-12-08 12:35 | disposition home or self-care (01) ==
LOC: BICMAMMO 12:34
PROVIDERS: ATTEND Obstetrics & Gynecology
DX: Z12.31 Encounter for screening mammogram for malignant neoplasm of breast (principal); Z80.3 Family history of malignant neoplasm of breast
CPT/HCPCS: 77067

== ENCOUNTER 2020-12-13 13:47 | Outpatient (CLI) | payer OTHER | END 2020-12-13 13:48 | disposition home or self-care (01) | LOC: BICRAD 13:47 | PROVIDERS: ATTEND Family Medicine | DX: R10.2 Pelvic and perineal pain (principal) | CPT/HCPCS: 72170 ==

== ENCOUNTER 2021-03-05 19:44 | Emergency (ER) | payer OTHER ==
[~2021-03-05 19:44] MED LIST changes: -ISOVUE-370 76%-LOCM 1 ML ONE; +Iopamidol-370 76% 500 ML 1 ML ONE
[2021-03-05 20:25] LABS: #Basophils 0.1 thou/uL (0.0-0.2); #Eosinphils 0.3 thou/uL (0.0-0.7); #Lymphocytes 5.6 thou/uL (1.20-3.40); #Monocytes 0.6 thou/uL (0.11-0.59); #Neutrophils 5.3 thou/uL (1.40-6.50); %Basophils 0.8 % (0.0-1.0); %Eosinophils 2.3 % (0.0-10.0); %Lymphocytes 47.1 % (21.0-51.0); %Monocytes 5.4 % (0.0-10.0); %Neutrophils 44.5 % (42.0-75.0); Hemoglobin 12.8 g/dL (12.0-16.0); Mean Corpuscular HGB CONC 34.3 g/dL (32.0-36.0); Mean Corpuscular Hemoglobin 33.1 pg (27.0-31.0); Mean Corpuscular Volume 96.4 fL (78.0-98.0); Mean Platelet Volume 7.4 fL (7.4-10.4); Platelet Count 349 thou/uL (130-400); RBC Distribution Width 11.8 % (11.5-14.5); Red Blood Cell (RBC) Count 3.88 mill/uL (4.20-5.40); White Blood Cell (WBC) Count 11.8 thou/uL (4.8-10.8)
[2021-03-05 20:48] LABS: ALT (SGPT) 17 U/L (8-55); AST (SGOT) 22 U/L (5-34); Albumin 3.5 g/dL (3.5-5.0); Alkaline Phosphatase 66 U/L (40-110); Anion Gap 14 mmol/L (10-20); BUN (Urea Nitrogen) 18 mg/dL (7.0-18.7); Bilirubin, Total 0.2 mg/dL (0.2-1.2); Calc. Creatinine Clearance 0 mL/min (70-130); Calcium 9.1 mg/dL (7.8-10.44); Carbon Dioxide 22 mmol/L (22-29); Chloride 109 mmol/L (98-107); Globulin 4.3 g/dL (2.4-3.5); Glucose 139 mg/dL (70-105); Potassium 5.3 mmol/L (3.5-5.1); Protein, Total 7.8 g/dL (6.0-8.3); Sodium 140 mmol/L (136-145)
[2021-03-05 20:53] LABS: Pregnancy Test - Urine (BHCG) Negative (Negative); Pregu Control Bar Appear? YES (CONTROL BAR); Specific Gravity 1.027 (1.002-1.036)
[2021-03-05 20:54] LABS: Pregu Control Background? CLEAR/WHITE (CLR/WHITE)
[2021-03-05 20:56] LABS: Bacteria/HPF 4+ HPF (None Seen); Bilirubin Negative (Negative); Blood, Urine Negative (Negative); Clarity Turbid (Clear); Glucose, Urine (Dipstick) Normal (Negative); Ketone, Urine Negative (Negative); Leukocyte 500 Leu/uL (Negative); Nitrite 1+ (Negative); Protein, Urine (Dipstick) 70 mg/dL (Neg-Trace); Specific Gravity, Urine 1.027 (1.002-1.036); Squamous Epithelial 21-50 HPF (0-3); WBC/HPF Greater than 50 HPF (0-3); pH, Urine 5.5 (5.0-9.0)
[2021-03-05 21:03] LABS: RBC/HPF 0-3 HPF (0-3)
[2021-03-05] MEDS ORDERED: Morphine 4 MG/ML VIAL ONE (21:06)
[2021-03-05] MEDS ORDERED: Ondansetron PF 4 MG/2 ML Vial ONE (21:06)
== END 2021-03-05 22:08 | disposition home or self-care (01) ==
LOC: ERS 19:44
DX: R10.9 Unspecified abdominal pain (principal); E78.5 Hyperlipidemia, unspecified; I10 Essential (primary) hypertension; F17.210 Nicotine dependence, cigarettes, uncomplicated; E11.9 Type 2 diabetes mellitus without complications; K21.9 Gastro-esophageal reflux disease without esophagitis
CPT/HCPCS: 74177; 80053; 81003; 81015; 81025; 85025; 87077; 87086; 87186; 96374; 96375; J2270; J2405; Q9967